=== PATIENT | male | born 1965 | race Caucasian/White ===

== ENCOUNTER → 2020-12-27 | Outpatient (CLI) | payer BC, OTHER ==
[~2020-12-27] MED LIST: BAYE81TA10 PO; HYDR-3490 PO; LISI10TA22 PO; MELO15TA28 PO; OMEP-221 PO; ROSU10TA6 PO
== END ==
LOC: M LABSMTC 10:58
PROVIDERS: ATTEND Anesthesiology
DX: Z01.818 Encounter for other preprocedural examination (principal); Z11.52 Encounter for screening for COVID-19

== ENCOUNTER 2021-01-01 06:29 | Day surgery (SDC) | payer BC, OTHER ==
[~2021-01-01] VITALS: Ht 182.9 cm; Wt 108.4 kg
[~2021-01-01 06:29] MED LIST changes: +NS 1,000 ML IV ONE
[2021-01-01] MEDS ORDERED: LIDOCAINE 2% 100MG/5ML SDV (FOR ANES.) As Ordered ONE (07:07)
[2021-01-01] MEDS ORDERED: propofoL 200 MG/20 ML VIAL As Ordered ONE (07:07)
--- NOTE | 2021-01-01 07:59 | ROOR ---
Patient Name: Valdemar Oh Procedure Date: 01/01/2021 7:35 AM Date of : 1965 Age: 55 Room: [facility] Gender: Male Note Status: Finalized Procedure: Total Colonoscopy to Cecum Indications: Screening for colorectal malignant neoplasm Providers: Paul Newberry MD Referring MD: Guru Weinberg MD Requesting Provider: Medicines: Monitored Anesthesia Care Complications: No immediate complications. Procedure: Pre-Anesthesia Assessment: - The heart rate, respiratory rate, oxygen saturations, blood pressure, adequacy of pulmonary ventilation, and response to care were monitored throughout the procedure. The Colonoscope was introduced through the anus and advanced to the cecum, identified by appendiceal orifice and ileocecal valve. The colonoscopy was performed without difficulty. The patient tolerated the procedure well. The quality of the bowel preparation was excellent. Findings: The perianal and digital rectal examinations were normal. Non-bleeding internal hemorrhoids were found during retroflexion. The hemorrhoids were small and Grade I (internal hemorrhoids that do not prolapse). Scattered small-mouthed diverticula were found in the recto-sigmoid colon, sigmoid colon and descending colon. The exam was otherwise without abnormality on direct and retroflexion views. Impression: - Non-bleeding internal hemorrhoids. - Diverticulosis in the recto-sigmoid colon, in the sigmoid colon and in the descending colon. - The examination was otherwise normal on direct and retroflexion views. - No specimens collected. - The exam was otherwise normal to the cecum. Recommendation: - Patient has a contact number available for emergencies. The signs and symptoms of potential delayed complications were discussed with the patient. Return to normal activities tomorrow. Written discharge instructions were provided to the patient. - High fiber diet. - Discharge patient to home. - Continue present medications. - Repeat colonoscopy in 10 years for screening purposes. - Return to referring physician. - The findings and recommendations were discussed with the patient's family. Procedure Code(s): --- Professional --- 39788, Colonoscopy, flexible; diagnostic, including collection of specimen(s) by brushing or washing, when performed (separate procedure) Diagnosis Code(s): --- Professional --- Z12.11, Encounter for screening for malignant neoplasm of colon K64.0, First degree hemorrhoids K57.30, Diverticulosis of large intestine without perforation or abscess without bleeding CPT copyright 2019 [employer]. All rights reserved. The codes documented in this report are preliminary and upon funding specialist review may be revised to meet current compliance requirements. Paul Newberry MD Paul Newberry MD 01/01/2021 7:59:19 AM Electronically signed by Paul Newberry MD Number of Addenda: 0 Note Initiated On: 01/01/2021 7:35 AM Estimated Blood Loss: Estimated blood loss: none.
== END 2021-01-01 08:20 | disposition home or self-care (01) ==
LOC: M OPP 06:29
PROVIDERS: ATTEND Internal Medicine Gastroenterology
DX: Z12.11 Encounter for screening for malignant neoplasm of colon (principal); K57.30 Diverticulosis of large intestine without perforation or abscess without bleeding; K64.0 First degree hemorrhoids; R12 Heartburn; Z79.82 Long term (current) use of aspirin; Z87.891 Personal history of nicotine dependence

== ENCOUNTER → 2024-10-19 | Outpatient (CLI) | payer BC ==
[~2024-10-19] MED LIST changes: -NS 1,000 ML IV ONE; -OMEP-221 PO; +OMEP40CA5 PO; +PREV1CAP PO; -ROSU10TA6 PO; +ROSU10TA61 PO
== END ==
LOC: M PLARAD 10:49
PROVIDERS: ATTEND Internal Medicine Medical Oncology
DX: C43.9 Malignant melanoma of skin, unspecified (principal)
CPT/HCPCS: 78816; A9552

== ENCOUNTER → 2025-05-23 | Outpatient (CLI) | payer BC ==
[~2025-05-23] MED LIST changes: -ROSU10TA61 PO; +ROSU10TA90 PO
== END ==
LOC: M RAD 06:14
PROVIDERS: ATTEND Internal Medicine Medical Oncology
DX: R74.01 Elevation of levels of liver transaminase levels (principal)